=== PATIENT | male | born 1995 | race Hispanic/Latino ===

== ENCOUNTER 2019-08-18 16:57 | Emergency (ER) | payer OTHER ==
[2019-08-18] MEDS ORDERED: ONDANSETRON ODT 4 MG TAB ONE (17:43)
[2019-08-18 17:57] LABS: BASOPHILS % (AUTO) 0.4 % (0.0-5.0); HEMATOCRIT 45.8 % (42-54); LYMPHOCYTES % (AUTO) 6.1 % (21.0-51.0); MEAN CORPUSCULAR HEMOGLOBIN 30.7 pg (27.0-33.0); MEAN CORPUSCULAR HGB CONC 34.3 g/dL (32.0-36.0); MEAN CORPUSCULAR VOLUME 89.4 fL (79-99); NEUTROPHILS % (AUTO) 89.5 % (40.0-77.0); PLATELET COUNT (AUTO) 202 K/uL (130-400); RED BLOOD CELL COUNT(AUTO) 5.13 MIL/uL (4.50-6.20); RED CELL DISTRIBUTION WIDTH 14.4 % (11.0-15.5); WHITE BLOOD COUNT (AUTO) 12.6 K/uL (4.8-10.8)
[2019-08-18 18:07] LABS: POTASSIUM 3.9 mmol/L (3.5-5.1)
[2019-08-18 18:11] LABS: ALBUMIN 4.5 g/dL (3.5-5.0)
[2019-08-18] MEDS ORDERED: SODIUM CHLORIDE 0.9% 1000ML 1,000 ML IV ONE (18:26)
[2019-08-18] MEDS ORDERED: METOCLOPRAMIDE 10 MG/2 ML VIAL ONE (18:26)
[2019-08-18 18:28] LABS: BILIRUBIN,TOTAL 0.5 mg/dL (0.2-1.0); TOTAL PROTEIN, SERUM 8.4 g/dL (6.0-8.3)
[2019-08-18] MEDS ORDERED: FAMOTIDINE/PF 20 MG/2 ML VIAL IV ONE (19:01)
== END 2019-08-18 19:38 | disposition home or self-care (01) ==
LOC: EDH 16:57
DX: K29.00 Acute gastritis without bleeding (principal); F12.10 Cannabis abuse, uncomplicated
CPT/HCPCS: 36415; 80053; 83690; 85025; 96361; 96374; 96375; 99284; J2765; J3490; J7030

== ENCOUNTER 2019-09-25 06:53 | Emergency (ER) | payer OTHER, SELFPAY ==
[~2019-09-25] VITALS: Ht 172.7 cm; Wt 74.8 kg
[2019-09-25 07:56] LABS: BASOPHILS % (AUTO) 0.3 % (0.0-5.0); EOSINOPHILS % (AUTO) 0.1 % (0.0-8.0); HEMATOCRIT 45.2 % (42-54); LYMPHOCYTES % (AUTO) 5.4 % (21.0-51.0); MEAN CORPUSCULAR HEMOGLOBIN 30.9 pg (27.0-33.0); MEAN CORPUSCULAR HGB CONC 33.9 g/dL (32.0-36.0); MEAN CORPUSCULAR VOLUME 91.2 fL (79-99); MONOCYTES % (AUTO) 5.2 % (3.0-13.0); NUCLEATED RED BLOOD CELLS 0.1 % (0.0-0.19); PLATELET COUNT (AUTO) 249 K/uL (130-400); RED BLOOD CELL COUNT(AUTO) 4.95 MIL/uL (4.50-6.20); RED CELL DISTRIBUTION WIDTH 13.9 % (11.0-15.5); WHITE BLOOD COUNT (AUTO) 14.5 K/uL (4.8-10.8)
[2019-09-25 08:05] LABS: CREATININE 1.1 mg/dL (0.5-1.5); POTASSIUM 4.2 mmol/L (3.5-5.1)
[2019-09-25 08:09] LABS: ALBUMIN 4.4 g/dL (3.5-5.0); BILIRUBIN,TOTAL 0.5 mg/dL (0.2-1.0)
[2019-09-25 08:10] LABS: INR 1.02 (0.85-1.15); PROTHROMBIN TIME 10.7 SEC (9.6-11.6)
[2019-09-25] MEDS ORDERED: FAMOTIDINE/PF 20 MG/2 ML VIAL IV ONE (08:17)
[2019-09-25] MEDS ORDERED: SODIUM CHLORIDE 0.9% 1000ML 1,000 ML IV ONE (08:18)
[2019-09-25] MEDS ORDERED: FOSPHENYTOIN SODIUM 1,000 MG in SODIUM CHLORIDE 0.9% 50 ML IJ SCH (08:45)
[2019-09-25 10:09] LABS: APPEARANCE,URINE Clear (CLEAR); BILIRUBIN,URINE Negative (NEGATIVE); COLOR,URINE Yellow (YELLOW); GLUCOSE, URINE (UA) Negative (NEGATIVE); KETONES,URINE 40 mg/dL (NEGATIVE); LEUKOCYTE ESTERASE ,URINE Negative (NEGATIVE); NITRATE,URINE Negative (NEGATIVE); OCCULT BLOOD,URINE Negative (NEGATIVE); PH,URINE 6.5 (5.0-8.0); PROTEIN,URINE Negative (NEGATIVE); UROBILINOGEN,URINE 0.2 mg/dL (0.2-1.0)
[2019-09-25 10:19] LABS: AMPHET/METH SCREEN,URINE NEGATIVE (NEGATIVE); BARBITURATE SCREEN, URINE NEGATIVE (NEGATIVE); BENZODIAZEPINES SCREEN,URINE POSITIVE (NEGATIVE); CANNABINOID SCREEN,URINE POSITIVE (NEGATIVE); COCAINE SCREEN,URINE NEGATIVE (NEGATIVE); OPIATE SCREEN,URINE NEGATIVE (NEGATIVE); PHENCYCLIDINE SCREEN,URINE NEGATIVE (NEGATIVE)
== END 2019-09-25 10:58 | disposition home or self-care (01) ==
LOC: EDH 06:53
DX: G40.909 Epilepsy, unspecified, not intractable, without status epilepticus (principal); F12.10 Cannabis abuse, uncomplicated; R03.0 Elevated blood-pressure reading, without diagnosis of hypertension; T42.4X5A Adverse effect of benzodiazepines, initial encounter; Z72.0 Tobacco use; Y92.098 Other place in other non-institutional residence as the place of occurrence of the external cause
CPT/HCPCS: 36415; 80053; 80305; 81003; 82550; 84484; 85025; 85610; 85730; 93005; 96365; 96366; 96375; 99285; J3490; J7030; Q2009

== ENCOUNTER 2020-08-14 15:24 | Emergency (ER) | payer OTHER ==
[2020-08-14] MEDS ORDERED: ONDANSETRON HCL 4 MG/2 ML VIAL ONE ×2 (15:45→18:08)
[2020-08-14 16:11] LABS: BASOPHILS % (AUTO) 0.3 % (0.0-5.0); HEMATOCRIT 45.2 % (42-54); LYMPHOCYTES % (AUTO) 5.1 % (21.0-51.0); MEAN CORPUSCULAR HEMOGLOBIN 30.6 pg (27.0-33.0); MEAN CORPUSCULAR VOLUME 87.6 fL (79-99); MONOCYTES % (AUTO) 5.8 % (3.0-13.0); NEUTROPHILS % (AUTO) 88.4 % (40.0-77.0); PLATELET COUNT (AUTO) 261 K/uL (130-400); RED BLOOD CELL COUNT(AUTO) 5.16 MIL/uL (4.50-6.20); RED CELL DISTRIBUTION WIDTH 12.9 % (11.0-15.5); WHITE BLOOD COUNT (AUTO) 18.6 K/uL (4.8-10.8)
[2020-08-14 16:23] LABS: INR 1.11 (0.85-1.15); PARTIAL THROMBOPLASTIN TIME 27.2 SEC (26.3-35.5); PROTHROMBIN TIME 11.9 SEC (9.6-11.6)
[2020-08-14 16:34] LABS: CARBON DIOXIDE 26 mmol/L (21-32); CHLORIDE 101 mmol/L (101-111); GLOMERULAR FILTR. RATE CALC 97 mL/min (>60); GLUCOSE,RANDOM 149 mg/dL (70-105); POTASSIUM 3.8 mmol/L (3.5-5.1); SODIUM SERUM 139 mmol/L (136-145); UREA NITROGEN, BLOOD 17 mg/dL (7-18)
[2020-08-14 16:37] LABS: APPEARANCE,URINE Clear (CLEAR); BILIRUBIN,URINE Small (NEGATIVE); COLOR,URINE Dark Yellow (YELLOW); GLUCOSE, URINE (UA) Negative (NEGATIVE); KETONES,URINE >=160 mg/dL (NEGATIVE); LEUKOCYTE ESTERASE ,URINE Trace (NEGATIVE); NITRATE,URINE Negative (NEGATIVE); OCCULT BLOOD,URINE Negative (NEGATIVE); PROTEIN,URINE POS 2+ mg/dL (NEGATIVE)
[2020-08-14 16:39] LABS: ALANINE AMINOTRANSFERASE 40 U/L (12-78); AMYLASE 41 U/L (25-115); ASPARTATE AMINOTRANSFERASE 23 U/L (10-37); BILIRUBIN,TOTAL 0.6 mg/dL (0.2-1.0); CREATINE KINASE, TOTAL 133 U/L (21-232); TOTAL PROTEIN, SERUM 8.6 g/dL (6.0-8.3)
[2020-08-14 16:42] LABS: ACETAMINOPHEN < 1 mcg/mL (10-29); ALCOHOL, BLOOD < 3 mg/dL (0-10)
[2020-08-14 16:43] LABS: LIPASE < 50 U/L (114-286)
[2020-08-14 16:43] LABS: BACTERIA,URINE Few /HPF (None Seen); MUCUS,URINE Moderate LPF (None Seen); RBC,URINE 0-1 /HPF (0-1); SQUAMOUS EPITHELIAL CELL,UR Rare /HPF (0-2)
[2020-08-14 16:57] LABS: AMPHET/METH SCREEN,URINE NEGATIVE (NEGATIVE); BARBITURATE SCREEN, URINE NEGATIVE (NEGATIVE); BENZODIAZEPINES SCREEN,URINE POSITIVE (NEGATIVE); CANNABINOID SCREEN,URINE POSITIVE (NEGATIVE); COCAINE SCREEN,URINE NEGATIVE (NEGATIVE); OPIATE SCREEN,URINE POSITIVE (NEGATIVE); PHENCYCLIDINE SCREEN,URINE NEGATIVE (NEGATIVE)
[2020-08-14] MEDS ORDERED: IOHEXOL-350 75 ML VIAL IV ONE (18:51)
== END 2020-08-14 20:01 | disposition home or self-care (01) ==
LOC: EDH 15:24
DX: R10.9 Unspecified abdominal pain (principal); T40.695A Adverse effect of other narcotics, initial encounter; R11.2 Nausea with vomiting, unspecified; R19.7 Diarrhea, unspecified; F12.10 Cannabis abuse, uncomplicated; F43.10 Post-traumatic stress disorder, unspecified; Z72.0 Tobacco use; Y92.89 Other specified places as the place of occurrence of the external cause
CPT/HCPCS: 36415; 74177; 80053; 80305; 81001; 82150; 82550; 83690; 84484; 85025; 85610; 85730; 93005; 96374; 99285; G0481; J2405 ×2; Q9967

== ENCOUNTER 2022-12-06 13:06 | Emergency (ER) | payer BC ==
[~2022-12-06] VITALS: Ht 172.7 cm; Wt 74.8 kg
[2022-12-06] MEDS ORDERED: CEFTRIAXONE 1G VIAL IM ONE (14:30)
[2022-12-06] MEDS ORDERED: LIDOCAINE HCL 1% 20 ML VIAL INJ SCH (14:30)
[2022-12-06 14:47] LABS: APPEARANCE,URINE CLEAR (CLEAR); BILIRUBIN,URINE NEGATIVE (NEGATIVE); COLOR,URINE LIGHT-YELLOW (YELLOW); GLUCOSE, URINE (UA) NEGATIVE (NEGATIVE); KETONES,URINE NEGATIVE (NEGATIVE); LEUKOCYTE ESTERASE ,URINE 500 Leu/uL (NEGATIVE); NITRATE,URINE NEGATIVE (NEGATIVE); OCCULT BLOOD,URINE NEGATIVE (NEGATIVE); PH,URINE 6.5 (5.0-8.0); PROTEIN,URINE NEGATIVE (NEGATIVE); UROBILINOGEN,URINE 0.2 mg/dL (0.2-1.0)
[2022-12-06 15:11] LABS: BACTERIA,URINE RARE /HPF (None Seen); MUCUS,URINE RARE LPF (None Seen); RBC,URINE 0-1 /HPF (0-1); SQUAMOUS EPITHELIAL CELL,UR RARE /HPF (0-2); WBC,URINE 51-100 /HPF (0-1); YEAST,URINE BUDDING FEW /HPF (None Seen)
[2022-12-06] MEDS ORDERED: SULF1TAB42 PO (15:37)
[2022-12-06] MEDS ORDERED: IBUP-2070 PO (15:37)
[2022-12-06] MEDS ORDERED: MUPI22OI2 TP (15:37)
[2022-12-06] MEDS ORDERED: CEPH500B PO (15:37)
[2022-12-06 16:04] VITALS: BP 110/68
== END 2022-12-06 16:05 | disposition home or self-care (01) ==
LOC: EDH 13:06
DX: L03.313 Cellulitis of chest wall (principal); L02.213 Cutaneous abscess of chest wall; N39.0 Urinary tract infection, site not specified; F17.210 Nicotine dependence, cigarettes, uncomplicated; J90 Pleural effusion, not elsewhere classified
CPT/HCPCS: 99284; 10060; 87088; 81001; 96372; J0696